=== PATIENT | female | born 1990 | race African-American/Black ===

== ENCOUNTER 2019-07-10 07:13 | Emergency (ER) | payer OTHER ==
[2019-07-10 07:21] VITALS: BP 115/74
[2019-07-10] MEDS ORDERED: CHERRY SYRUP 10 ML UDC PO ONE (07:39)
[2019-07-10] MEDS ORDERED: DEXAMETHASONE 10 MG/ML VIAL PO STA (07:39)
--- NOTE | 2019-07-10 08:54 | ED Physician Documentation ---
PD HPI LOWER EXT INJURY - Stated complaint Stated Complaint: LT HIP PX - Chief complaint Chief Complaint: Ext Problem - History obtained from History obtained from: Patient - History of Present Illness PD HPI LOW EXT INJURY LOCATION: Left, Hip Type of injury: Other (over use on boat) Where injury occurred: Work Timing - onset: How many months ago (1) Timing - duration: Months (1) Timing - details: Gradual onset, Still present, Waxing and waning Improved by: Rest, Immobilization Worsened by: Moving, Palpating Associated symptoms: No: Weakness, Numbness, Tingling, Swelling Similar symptoms before: No diagnosis Recently seen: Clinic - Additional information Additional information: 29-year-old previously well female reports a pain to the lateral hip over the past month which has been persistent and worsening she does have some good days and bad days she has pain when she is on her leg she has pain sometimes it rest and with pressure on the side. She does complain of some clicking that occurs and has for years.She has not had fever or swelling to the area and she has had migration of her pain lateral to anterior. Patient has been into see her primary care doctor and x-ray has been obtained she does not have the results of this. Review of Systems Constitutional: denies: Fever Eyes: denies: Decreased vision Ears: denies: Ear pain Nose: denies: Congestion Throat: denies: Sore throat Respiratory: denies: Cough GI: denies: Abdominal Pain, Nausea, Vomiting : denies: Dysuria PD PAST MEDICAL HISTORY - Past Medical History Past Medical History: No - Past Surgical History Past Surgical History: No - Present Medications Home Medications: Ambulatory Orders Medication Instructions Recorded Confirmed Hydrocodone/Acetaminophen 1 - 2 each PO Q6H PRN #14 tablet 07/10/19 [Hydrocodon-Acetaminophen 5-325] - Allergies Allergies/Adverse Reactions: Allergies Allergy/AdvReac Type Severity Reaction Status Date / Time No Known Drug Allergies Allergy Verified 07/10/19 07:21 - Social History Does the pt smoke?: No Smoking Status: Never smoker Does the pt drink ETOH?: No Does the pt have substance abuse?: No - Immunizations Immunizations are current?: Yes PD ED PE NORMAL - Vitals Vital signs reviewed: Yes (normal ) - General General: Alert and oriented X 3, No acute distress, Well developed/nourished - HEENT HEENT: Atraumatic, PERRL, EOMI - Respiratory Respiratory: No respiratory distress - Back Back: No CVA TTP, No spinal TTP - Derm Derm: Normal color, Warm and dry, No rash - Extremities Extremities: No deformity, No edema, Other (There is pain to palpation over the greater trohchanter. There is no pain to passive movement of the hip joint through a ROM. Active ROM causes pain. distal n/v is intact. There is no obvious deformity to the area. ) - Neuro Neuro: Alert and oriented X 3, scallop raker 2-12 intact, No motor deficit, No sensory deficit, Normal speech Eye Opening: Spontaneous Motor: Obeys Commands Verbal: Oriented GCS Score: 15 - Psych Psych: Normal mood, Normal affect Results - Vitals Vitals: Vital Signs - 24 hr 07/10/19 07:19 Temperature 35.9 C L Heart Rate 84 Respiratory 16 Rate Blood Pressure 115/74 O2 Saturation 98 Oxygen O2 Source Room air PD MEDICAL DECISION MAKING - ED course Complexity details: considered differential, d/w patient ED course: 29-year-old female with lateral hip pain does not have pain with passive movement of the hip joint x-rays have been obtained at another facility and her case is consistent with greater trochanteric pain syndrome and likely related to bursitis. She does have clicking hips and she will need further work-up through orthopedics. [facility] in the [facility] she is administered dexamethasone 10 mg orally and we will refer her to orthopedics. She has enough pain on a bad day (like today) that she is not able to sleep well. Last weekend she had bad pain like this and over the weekend with rest she improved but did not resolve. Departure - Departure Disposition: 01 Home, Self Care Clinical Impression: Trochanteric bursitis of left hip Condition: Stable Instructions: ED Bursitis Follow-Up: [facility] [Provider Group] Prescriptions: Hydrocodone/Acetaminophen [Hydrocodon-Acetaminophen 5-325] 1 - 2 each PO Q6H PRN #14 tablet PRN Reason: pain
== END 2019-07-10 09:08 | disposition home or self-care (01) ==
LOC: ED 07:13
DX: M70.62 Trochanteric bursitis, left hip (principal)
CPT/HCPCS: 99282; 99283; A9270

== ENCOUNTER 2020-03-10 16:57 | Outpatient (CLI) | payer OTHER ==
[2020-03-10] MEDS ORDERED: GADOBUTROL 7.5 MMOL/7.5 ML VIAL ONE (17:19)
[2020-03-10] MEDS ORDERED: GADOBUTROL 7.5 MMOL/7.5 ML VIAL IVP ONE (18:33)
--- NOTE | 2020-03-11 15:20 | MRI Report ---
Reason: PAIN SINCE FALL IN 2019 Procedure Date: 03/10/2020 Accession Number: [id number] / [id number] Procedure: MRI - Pelvis W/WO CPT Code: Final Report FULL RESULT: EXAM: MRI PELVIS WITHOUT AND WITH CONTRAST EXAM DATE: 03/10/2020 06:54 PM. CLINICAL HISTORY: Anterior hip pain. COMPARISON: None. TECHNIQUE: Multiplanar, multisequence T1-weighted and fluid-sensitive sequences of the pelvis before and after administration of intravenous contrast. IV contrast: 7.5 cc Gadavist. Other: None. FINDINGS: Bones: Extensive osteonecrosis of both femoral heads. Minimally depressed subcortical fracture at the superior aspect of the left femoral head. Nondisplaced, nondepressed subcortical fracture at the right femoral head. Subcortical cyst at the superior aspect of the right femoral head. Marrow edema at the left femoral head and marrow edema at the right femoral head and neck. Lower Lumbar Spine: Unremarkable. Sacroiliac Joints: No effusion or sacroiliitis. Right Hip: Small joint effusion. No dislocation. Left Hip: Small joint effusion. No dislocation. Symphysis Pubis: Unremarkable. Musculature: No edema or fatty atrophy. Pelvic Cavity: There is a small 2 x 2.1 x 1.7 cm simple appearing left ovarian cyst. Small amount of free fluid in the pelvic cul-de-sac. Lymphadenopathy. Other: The visualized sciatic nerves are unremarkable. No bursitis. The subcutaneous tissues are unremarkable. No abscess or cellulitis. IMPRESSION: 1. 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 2. Small bilateral hip joint effusions. RADIA
== END 2020-03-10 16:58 | disposition home or self-care (01) ==
LOC: DI 16:57
PROVIDERS: ATTEND General Practice
DX: M87.9 Osteonecrosis, unspecified (principal); M25.452 Effusion, left hip; M25.451 Effusion, right hip
CPT/HCPCS: 72197; A9585

== ENCOUNTER 2020-05-09 04:06 | Emergency (ER) | payer OTHER ==
--- NOTE | 2020-05-09 05:30 | ED Physician Documentation ---
History of Present Illness - Stated complaint Stated Complaint: RT HIP PX - Chief complaint Chief Complaint: General - History obtained from History obtained from: Patient - History of Present Illness Timing: Yesterday - Additonal information Additional information: 30-year-old female with a history of osteonecrosis of both hips heard a loud pop yesterday morning and the pain in her right hip increased dramatically. She has been on crutches. She does state that periodically she will have to go on crutches. She has been seen at the [facility] for this and does not have a date set for hip replacement.She states that she is in pain but not in a pain crisis. Review of Systems Constitutional: denies: Fever Eyes: denies: Decreased vision Ears: denies: Ear pain Nose: denies: Rhinorrhea / runny nose, Congestion Throat: denies: Sore throat Cardiac: denies: Chest pain / pressure Respiratory: denies: Dyspnea, Cough GI: denies: Abdominal Pain, Nausea, Vomiting : denies: Dysuria PD PAST MEDICAL HISTORY - Past Surgical History Past Surgical History: No - Present Medications Home Medications: Ambulatory Orders Medication Instructions Recorded Confirmed Hydrocodone/Acetaminophen 1 - 2 each PO Q6H PRN #14 tablet 05/09/20 [Hydrocodon-Acetaminophen 5-325] - Allergies Allergies/Adverse Reactions: Allergies Allergy/AdvReac Type Severity Reaction Status Date / Time No Known Drug Allergies Allergy Verified 05/09/20 04:21 - Social History Does the pt smoke?: No Smoking Status: Never smoker Does the pt drink ETOH?: No Does the pt have substance abuse?: No - Immunizations Immunizations are current?: Yes - POLST Patient has POLST: No PD ED PE NORMAL - Vitals Vital signs reviewed: Yes (Normal) - General General: Alert and oriented X 3, No acute distress, Well developed/nourished - HEENT HEENT: Atraumatic, PERRL, EOMI - Respiratory Respiratory: No respiratory distress - Derm Derm: Normal color, Warm and dry, No rash - Extremities Extremities: No deformity, No edema, No calf tenderness / cord, Other (There is some tenderness anteriorly along the inguinal canal and below. There is no mass to suggest hernia. The patient is able to move the right hip and range of motion she has more pain with hip flexion than with internal and external rotation of the hip joint. There is no shortening or rotatio) - Neuro Neuro: Alert and oriented X 3, files supervisor 2-12 intact, No motor deficit, No sensory deficit, Normal speech Eye Opening: Spontaneous Motor: Obeys Commands Verbal: Oriented GCS Score: 15 - Psych Psych: Normal mood, Normal affect Results - Vitals Vitals: Vital Signs - 24 hr 05/09/20 05/09/20 04:19 05:16 Temperature 36.2 C L Heart Rate 98 86 Respiratory 18 18 Rate Blood Pressure 128/68 109/79 O2 Saturation 98 98 Oxygen O2 Source Room air - Rads (name of study) right hip w pelvis Radiology: Prelim report reviewed, EMP read indepedently, See rad report (Impression: 1. Flattening and sclerosis of the left femoral head consistent with stage IV avascular necrosis. 2. 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 ) PD MEDICAL DECISION MAKING - ED course Complexity details: reviewed results, re-evaluated patient, considered d ifferential, d/w patient ED course: 30-year-old female with bilateral avascular necrosis of the femoral heads has now ratcheted her stage of necrosis to stage IV. She has an increase in her pain and she is back on crutches. We will provide some temporary pain relief and expect improvement and we will take the patient off work for 2 days. Departure - Departure Disposition: 01 Home, Self Care Clinical Impression: Avascular necrosis of bone of hip Qualifiers: Laterality: right Qualified Code(s): M87.051 - Idiopathic aseptic necrosis of right femur Condition: Stable Instructions: ED Necrosis Avascular Femoral Head Follow-Up: OUMAR TRAMMELL DO [Primary Care Provider] - Prescriptions: Hydrocodone/Acetaminophen [Hydrocodon-Acetaminophen 5-325] 1 - 2 each PO Q6H PRN #14 tablet PRN Reason: pain Forms: Activity restrictions
[2020-05-09 06:11] VITALS: BP 107/70
--- NOTE | 2020-05-09 09:37 | XRAY Report ---
PROCEDURE: Hip w/Pelvis 2-3V RT INDICATIONS: R hip pain after a "pop" hx of osteonecrosis TECHNIQUE: AP pelvis with lateral view(s) of the right hip(s). COMPARISON: MR pelvis 03/10/2020 FINDINGS: Bones: No fractures or dislocations. Pelvic ring appears intact. No suspicious bony lesions. Ther e is a mild flattening deformity identified of the left femoral head. Areas of subchondral sclerosis and cyst are identified. It is noted that on the MR pelvis exam of 03/10/2020, nondepressed subcortica l fracture of the right femoral head as well as cyst formation and marrow edema was present. Soft tissues: The visualized bowel gas pattern is normal. No suspicious soft tissue calcifications. IMPRESSION: 1. Flattening of the left femoral head with areas of subchondral cysts and sclerosis consistent with avascular necrosis. Appearance is stable. 2. Please refer to MRI pelvis report of 03/10/2020 as changes of osteonecrosis of the right femoral he ad are identified. There are less well visualized on current x-ray exam. Reviewed by: Lis Lawrence MD on 05/09/2020 9:36 AM PDT Approved by: Lis Lawrence MD on 05/09/2020 9:36 AM PDT Station ID: [id number]
== END 2020-05-09 06:15 | disposition home or self-care (01) ==
LOC: ED 04:06
DX: M87.051 Idiopathic aseptic necrosis of right femur (principal)
CPT/HCPCS: 99283; 99284